=== PATIENT | male | born 1980 | race African-American/Black ===

== ENCOUNTER 2019-03-29 18:12 | Emergency (ER) | payer SELFPAY | END 2019-03-29 20:46 | disposition home or self-care (01) | LOC: JERFT 18:12 ==

== ENCOUNTER 2019-04-09 21:37 | Emergency (ER) | payer SELFPAY ==
[2019-04-09 21:55] VITALS: TEMP 98.7; BMI 24.1
--- NOTE | 2019-04-09 22:50 | PDOC ---
History of Present Illness - General Chief Complaint: Pain Stated Complaint: ARM PROBLEM Time Seen by Provider: 04/09/19 22:29 History Source: Patient Exam Limitations: No Limitations Past History - Travel Traveled outside of the country in the last 30 days: No Close contact w/someone who was outside of country & ill: No - Past Medical History Allergies/Adverse Reactions: Allergies Allergy/AdvReac Type Severity Reaction Status Date / Time No Known Allergies Allergy Verified 04/09/19 21:52 Home Medications: Ambulatory Orders Clobetasol Propionate [Temovate] 15 gm TP ASDIR #30 oint...g. 03/29/19 Prednisone [Deltasone] 20 mg PO DAILY #11 tablet 03/29/19 Acetaminophen [Tylenol -] 500 mg PO Q4H #30 tablet 04/09/19 Cephalexin Monohydrate [Keflex -] 500 mg PO BID #14 capsule 04/09/19 Ibuprofen 600 mg PO Q6H #30 tablet 04/09/19 Sulfamethoxazole/Trimethoprim [Bactrim Ds -] 1 tab PO BID #14 tablet 04/09/19 - Suicide/Smoking/Psychosocial Hx Smoking History: Never smoked Hx Alcohol Use: No Drug/Substance Use Hx: No Review of Systems - Review of Systems Able to Perform ROS?: Yes Comments:: 04/09/19 23:04 CONSTITUTIONAL: Absent: fever, chills, diaphoresis, generalized weakness, malaise, loss of appetite HEENT: Absent: rhinorrhea, nasal congestion, throat pain, throat swelling, difficulty swallowing, mouth swelling, ear pain, eye pain, visual Changes MUSCULOSKELETAL: Absent: myalgia, arthralgia, joint swelling SKIN: Present: underarm pain Absent: rash, itching, pallor NEUROLOGIC: Absent: headache, focal weakness or paresthesias, dizziness, unsteady gait, seizure, mental status changes, bladder or bowel incontinence PSYCHIATRIC: Absent: anxiety, depression, suicidal or homicidal ideation, hallucinations. Is the patient limited Filipino proficient: No *Physical Exam - Vital Signs Last Vital Signs Temp Pulse Resp BP Pulse Ox 98.7 F 90 16 115/73 100 04/09/19 21:52 04/09/19 21:52 04/09/19 21:52 04/09/19 21:52 04/09/19 21:52 - Physical Exam Comments: 04/09/19 23:06 GENERAL: The patient is awake, alert, and fully oriented, in no acute distress. HEAD: Normal with no signs of trauma. EYES: Pupils equal, round and reactive to light, extraocular movements intact, sclera anicteric, conjunctiva clear. EXTREMITIES: Normal range of motion, no edema. NEUROLOGICAL: Normal speech, normal gait. PSYCH: Normal mood, normal affect. SKIN: Pt with multiple induratated nodules to b/l axilla. No overlying redness. Warm, Dry, normal turgor. Medical Decision Making - Medical Decision Making 04/09/19 23:14 The patient is a 39 y/o M with no PMH who presents to the ER with painful armpits. The patient states he thinks he has multiple boils under his arms. States they have been there for two weeks. Denies fevers, chills, numbness, tingling and weakness to the affected extremities. A/P: Hydrandnitis On exam pt with multiple indurated nodules consistent with hydradnitis suppurtiva None are ready to drain at this time. Will start patient on antibiotics and have him follow up with dermatology DC home I discussed the physical exam findings, ancillary test results and final diagnoses with the patient. I answered all of the patient's questions. The patient was satisfied with the care received and felt comfortable with the discharge plan and treatment plan. The Patient agrees to follow up with the primary care physician/specialist within 24-72 hours. Return precautions were given. *DC/Admit/Observation/Transfer Diagnosis at time of Disposition: Hydradenitis - Discharge Dispostion Disposition: HOME Condition at time of disposition: Stable Decision to Admit order: No - Prescriptions Prescriptions: Acetaminophen [Tylenol -] 500 mg PO Q4H #30 tablet Cephalexin Monohydrate [Keflex -] 500 mg PO BID #14 capsule Ibuprofen 600 mg PO Q6H #30 tablet Sulfamethoxazole/Trimethoprim [Bactrim Ds -] 1 tab PO BID #14 tablet - Referrals Referrals: Reema Leos MD [Staff Physician] - - Patient Instructions Printed Discharge Instructions: Hidradenitis Suppurativa Additional Instructions: You were evaluated for the bumps under your arm You have Hydradnitis Suppurtiva Take the antibiotics as prescribed. Finish the entire dose even if you feel better Take the Tylenol and Motrin as prescribed. Use warm water soaks to the area Please call for a dermatology referral on Wednesday. Return to the ER for fevers, worsening pain, fluctuant abscesses, or if you have any changes in your symptoms - Post Discharge Activity
[2019-04-09 22:57] VITALS: BP 113/75; PULSE 82
== END 2019-04-09 22:55 | disposition home or self-care (01) ==
LOC: JER 21:37
DX: L73.2 Hidradenitis suppurativa (principal)
CPT/HCPCS: 99282-25

== ENCOUNTER 2021-05-14 21:51 | Emergency (ER) | payer OTHER ==
[2021-05-14 21:58] VITALS: BP 126/80; PULSE 71; TEMP 98; BMI 32.5
[2021-05-14] MEDS ORDERED: diazePAM 5 MG TABLET PO ONE (22:33)
[2021-05-14] MEDS ORDERED: KETOROLAC TROMETHAMINE 30 MG/1 ML VIAL IM ONE (22:33)
[2021-05-14] MEDS ORDERED: KETOROLAC TROMETHAMINE 30 MG/1 ML VIAL ONE (22:38)
[2021-05-14] MEDS ORDERED: diazePAM 5 MG TABLET ONE (22:39)
== END 2021-05-14 23:08 | disposition home or self-care (01) ==
LOC: JERFT 21:51
PROC: 3E0233Z Introduction of Anti-inflammatory into Muscle, Percutaneous Approach (ICD-10-PCS; principal; 2021-05-14)
DX: M54.5 Low back pain (principal); X50.0XXA Overexertion from strenuous movement or load, initial encounter
CPT/HCPCS: 99284-25